=== PATIENT | male | born 1940 | race Caucasian/White ===

== ENCOUNTER → 2020-06-15 12:00 | Outpatient (BNVA) | payer OTHER, SELFPAY | PROVIDERS: PCP Nurse Practitioner Family; Referring Provider Nurse Practitioner Family; Visit Provider Specialist | DX: M17.0 Bilateral primary osteoarthritis of knee (principal); M25.561 Pain in right knee; M25.562 Pain in left knee; G89.29 Other chronic pain | CPT/HCPCS: 73560; 73565 ==

== ENCOUNTER 2020-06-30 06:50 | Outpatient (CLI) | payer OTHER, SELFPAY ==
--- NOTE | 2020-06-30 06:55 | USCV_ITS ---
Schroeder Fred Age: 79 Gender: M : 1940 Exam Date: 06/30/2020 07:16 Ordering Phys: Celena Cruz MD ([email or web address]) Technologist: Arina York Exam Location: [facility] [place] Indication: DYSPNEA ON EXERTION BP: 136 / 75 HR: 87 Rhythm: Sinus Technical Quality: Adequate MEASUREMENTS (Male / Female) Normal Values 2D ECHO LV Diastolic Diameter PLAX 6.7 cm 4.2 - 5.9 / 3.9 - 5.3 cm LV Systolic Diameter PLAX 5.0 cm LV Chamber Size 4.6 cm IVS Diastolic Thickness 1.4 cm 0.6 - 1.0 / 0.6 - 0.9 cm IVS Systolic Thickness 2.2 cm LVPW Diastolic Thickness 2.2 cm 0.6 - 1.0 / 0.6 - 0.9 cm LVPW Systolic Thickness 2.1 cm LVOT Diameter 2.0 cm LV Ejection Fraction 2D Teich 49.0 % LV Ejection Fraction MOD 2C 57.4 % LV Ejection Fraction 2C AL 57.5 % LA Diameter 4.7 cm LA Width 4.8 cm LA Height 6.0 cm RA Width 4.9 cm RA Height 6.5 cm Aorta at Sinotubular Diameter 2.9 cm M-MODE LV Diastolic Diameter MM 7.5 cm 4.2 - 5.9 / 3.9 - 5.3 cm LV Systolic Diameter MM 5.6 cm LV Ejection Fraction MM Teich 49.8 % IVS Diastolic Thickness MM 1.2 cm 0.6 - 1.0 / 0.6 - 0.9 cm IVS Systolic Thickness MM 1.7 cm LVPW Diastolic Thickness MM 1.4 cm 0.6 - 1.0 / 0.6 - 0.9 cm LVPW Systolic Thickness MM 1.8 cm Aortic Annulus Diameter 3.7 cm LA Ao Ratio MM 1.6 MV E Point Septal Separation 1.7 cm DOPPLER AV Peak Velocity 137.0 cm/s LVOT Peak Velocity 123.0 cm/s AV Area Cont Eq vti 2.6 cm squared AV Area Cont Eq pk 2.9 cm squared MV Area PHT 6.9 cm squared Mitral E to A Ratio 2.6 MV E' Velocity 69.0 cm/s Mitral E to MV E' Ratio 5.9 Mitral E to LV E' Lateral Ratio 4.8 Mitral E to LV E' Septal Ratio 7.8 TR Peak Velocity 140.0 cm/s TR Peak Gradient 7.8 mmHg TV Peak E Velocity 85.0 cm/s Right Atrial Pressure 3.0 mmHg Pulmonary Artery Systolic Pressu 10.8 mmHg PV Peak Velocity 76.0 cm/s RV Acceleration Time 0.1 s RV Ejection Time 0.3 s RV AcT/ET 0.3 FINDINGS Left Ventricle Moderately dilated left ventricular cavity. Moderately decreased left ventricle systolic function. Left ankle ejection fraction estimated at 30%. Global left ventricular hypokinesis. Abnormal diastolic function. Right Ventricle Normal right ventricular size and low normal systolic function. RVSP could not be calculated due to incomplete tricuspid regurgitation velocity profile. Right Atrium Normal right atrial size. Left Atrium Moderately increased left atrial size. Mitral Valve Mitral valve not well visualized. Thickened mitral valve. No mitral valve stenosis. No significant mitral valve regurgitation. Aortic Valve Aortic valve not well visualized. Thickened aortic valve. No aortic valve stenosis. No aortic valve regurgitation. Tricuspid Valve Structurally normal tricuspid valve. Trace tricuspid valve regurgitation. Pulmonic Valve Pulmonic valve not well visualized. No pulmonary valve stenosis. Pericardium Trivial to small circumferential pericardial effusion. No evidence of hemodynamic compromise. Aorta Normal size aortic root and proximal ascending aorta. CONCLUSIONS 1. This is a technically difficult study. Ultrasound enhancing agent Optison was used as per protocol. 2. Moderately dilated left ventricular cavity. Moderately decreased left ventricle systolic function. Left ankle ejection fraction estimated at 30%. Global left ventricular hypokinesis. Abnormal diastolic function. 3. Normal right ventricular size and low normal systolic function. 4. Trivial to small circumferential pericardial effusion. 5. No prior similar studies to compare. Celena Cruz MD (Electronically Signed) Final Date: 02 July 2020 18:56 S
[2020-06-30] MEDS: perflutren protein-a microsphr 0.22 mg/mL SDV 3 mL IV (07:41)
== END 2020-06-30 06:51 | disposition home or self-care (01) ==
LOC: RAD 06:52
PROVIDERS: PCP Nurse Practitioner Family; Visit Provider Internal Medicine Cardiovascular Disease
DX: R06.09 Other forms of dyspnea (principal); I31.3 Pericardial effusion (noninflammatory)
CPT/HCPCS: C8929; Q9956

== ENCOUNTER → 2020-07-12 15:35 | Outpatient (BNVA) | payer OTHER, SELFPAY | PROVIDERS: PCP Nurse Practitioner Family; Visit Provider Internal Medicine Cardiovascular Disease | DX: I50.9 Heart failure, unspecified (principal); E66.01 Morbid (severe) obesity due to excess calories; Z68.41 Body mass index [BMI] 40.0-44.9, adult | CPT/HCPCS: 80048; 83735; 83880 ==

== ENCOUNTER → 2020-08-14 15:35 | Outpatient (BNVA) | payer MEDICARE, SELFPAY | PROVIDERS: PCP Nurse Practitioner Family; Visit Provider Internal Medicine Cardiovascular Disease | DX: I50.9 Heart failure, unspecified (principal); I25.10 Atherosclerotic heart disease of native coronary artery without angina pectoris; I25.2 Old myocardial infarction; Z87.891 Personal history of nicotine dependence | CPT/HCPCS: 80048; 83735; 83880 ==

== ENCOUNTER 2020-09-01 07:04 | Outpatient (CLI) | payer MEDICARE, SELFPAY ==
--- NOTE | 2020-09-01 07:29 | ECG_ITS ---
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 Interpretive Statements NAME OF STUDY: LEXISCAN SESTAMIBI STRESS TEST INDICATION: Shortness of Breath, heart failure PROCEDURE: At the baseline, the blood pressure was 171/87 mmHg, oxygen saturation 94% with a heart rate of 67 bpm. The electrocardiogram showed sinus rhythm with PAC's and first-degree AV block. 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 Nonspecific T wave abnormality. The Lexiscan was infused over a period of 20 seconds. A total of 0.4 milligrams of Lexiscan was infused. The stress phase was continued for a total of 5 minutes. Heart rate at the end of the stress phase was 70 bpm, oxygen saturation in 95% with a blood pressure of 120/68 mmHg. The EKG at the peak infusion revealed no significant ST-T wave changes. Sestamibi was injected 20 seconds after the Lexiscan infusion. Blood pressure at the end of the recovery phase was 125/72 mmHg, oxygen saturation 95% with a heart rate of 73 beats per minute. CONCLUSION: 1. No significant EKG changes with the LexiScan infusion. 2. No LexiScan induced chest pain or cardiac arrhythmia. 3. Normal blood pressure and heart rate response. 4. Sestamibi/sestamibi perfusion scan pending; see separate report. Electronically Signed On 09-04-2020 6:34:43 PRINCIPAL ELECTRICAL ENGINEER by Celena Cruz M.D. [id number]
--- NOTE | 2020-09-01 07:30 | NMCV_ITS ---
NM gauri perf SPECT r/s* [id number] Fred Schroeder Age: 79 Gender: M : 1940 Exam Date: 09/01/2020 08:02 Ordering Phys: Celena Cruz MD ([email or web address]) Technologist: JACQUE Hay Exam Location: [facility] Indications: HEART FAILURE STRESS TEST [facility] IMAGE PROTOCOL Rest/Stress 1 Lexiscan Day Radiopharmaceutical Dose (mCi) Administration Site Administered by Rest: Tc-99m 10.9 IV JACQUE Mitchell Sestamibi Stress:Tc-99m 32.9 IV JACQUE Mitchell Sestamibi Rest: 09/01/2020 60 Discovery 630 Stress: 09/01/2020 30 Discovery 630 0.4mg Lexiscan. Supine position only as patient was unable to lay prone. SPECT RESULTS Technical Quality: Good Raw Data Analysis: Soft tissue attenuation Image Corrections: No attenuation or motion correction applied Summed Stress Score: 6 Summed Rest Score: 1 Summed Difference Score: 6 PERFUSION FINDINGS Moderate sized perfusion abnormality of moderate severity of basal to mid inferior wall with mild reversibility of mid and apical inferior mascorro and basal to mid infero-lateral mascorro. FUNCTIONAL RESULTS (calculated via Gated SPECT) Stress Image LV EF (%): 35 Stress EDV (mL):253 TID: 0.91 Stress ESV (mL):164 FUNCTIONAL FINDINGS: The left ventricle is dilated. Transient Ischemia Dilatation of 0.91. The left ventricular ejection fraction is reduced with a value of 35%. There is moderately reduced left ventricular global systolic function. There is moderately decreased wall thickening. Markedly increased end diastolic and end systolic volumes. IMPRESSIONS 1. Moderate sized perfusion abnormality of moderate severity of basal to mid inferior wall with mild reversibility of mid and apical inferior mascorro and basal to mid infero-lateral mascorro. 2. 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 3. There is moderately reduced left ventricular global systolic function, LVEF= 35%. 4. There is moderately decreased wall thickening. 5. No prior similar studies to compare. Celena Cruz MD (Electronically Signed) Final Date: 04 September 2020 06:57 S
[2020-09-01 07:41] VITALS: BMI 34.8
[2020-09-01] MEDS: regadenoson 0.4 Mg/5 ml Syringe IVP (08:49)
[2020-09-01 09:13] VITALS: BP 125/72; PULSE 74
== END 2020-09-01 07:05 | disposition home or self-care (01) ==
PROVIDERS: PCP Nurse Practitioner Family; Visit Provider Internal Medicine Cardiovascular Disease
DX: I50.9 Heart failure, unspecified (principal); E66.01 Morbid (severe) obesity due to excess calories; Z68.41 Body mass index [BMI] 40.0-44.9, adult
CPT/HCPCS: 78452; 93017; A9500; J2785

== ENCOUNTER → 2020-09-18 10:46 | Outpatient (BNVA) | payer MEDICARE, SELFPAY | PROVIDERS: PCP Nurse Practitioner Family; Visit Provider Internal Medicine Cardiovascular Disease | DX: I50.20 Unspecified systolic (congestive) heart failure (principal); I51.7 Cardiomegaly; I25.10 Atherosclerotic heart disease of native coronary artery without angina pectoris | CPT/HCPCS: 80048; 83735; 83880 ==

== ENCOUNTER 2021-04-09 09:58 | Outpatient (CLI) | payer MEDICARE, SELFPAY ==
--- NOTE | 2021-04-09 10:15 | USCV_ITS ---
Fred Schroeder Age: 80 Gender: M : 1940 Exam Date: 04/09/2021 10:27 Ordering Phys: Celena Cruz MD ([email or web address]) Technologist: Kit Enriquez Exam Location: [place] Indication: Assessment of LV function BP: / HR: Rhythm: Sinus Technical Quality: Adequate MEASUREMENTS (Male / Female) Normal Values FINDINGS Left Ventricle Normal left ventricular cavity size. Normal left ventricular systolic function. Left ventricular ejection fraction is estimated at 55 %. No diagnostic regional wall motion normality. Right Ventricle Normal right ventricular size and systolic function. Right Atrium Right atrium not well visualized. Left Atrium Left atrium not well visualized. Mitral Valve Mitral valve not well visualized. Aortic Valve Aortic valve not well visualized. Tricuspid Valve Tricuspid valve not well visualized. Pulmonic Valve Pulmonic valve not well visualized. Pericardium No pericardial effusion. Aorta Aorta not well visualized. CONCLUSIONS 1. This is a limited echocardiogram with ultrasound enhancing agent. Optison was used per protocol. 2. Normal left ventricular cavity size. Normal left ventricular systolic function. Left ventricular ejection fraction is estimated at 55 %. No diagnostic regional wall motion normality. 3. Normal right ventricular size and systolic function. 4. When compared to previous echocardiogram dated 06/30/2020, left ventricle systolic function has improved. Celena Cruz MD (Electronically Signed) Final Date: 09 April 2021 12:18 S
[2021-04-09] MEDS: perflutren protein-a microsphr 0.22 mg/mL SDV 3 mL IV (10:46)
== END 2021-04-09 09:59 | disposition home or self-care (01) ==
LOC: US 09:59
PROVIDERS: PCP Nurse Practitioner Family; Visit Provider Internal Medicine Cardiovascular Disease
DX: I50.9 Heart failure, unspecified (principal)
CPT/HCPCS: 93325; C8924; Q9956

== ENCOUNTER → 2021-08-13 10:54 | Outpatient (BNVA) | payer MEDICARE, SELFPAY | PROVIDERS: PCP Nurse Practitioner Family; Visit Provider Internal Medicine | DX: L40.50 Arthropathic psoriasis, unspecified (principal); L40.9 Psoriasis, unspecified; M17.0 Bilateral primary osteoarthritis of knee; Z87.891 Personal history of nicotine dependence; Z11.59 Encounter for screening for other viral diseases; Z11.1 Encounter for screening for respiratory tuberculosis; N18.9 Chronic kidney disease, unspecified; Z79.899 Other long term (current) drug therapy | CPT/HCPCS: 36415; 99204 ==

== ENCOUNTER 2021-08-13 12:46 | Outpatient (CLI) | payer MEDICARE, SELFPAY ==
--- NOTE | 2021-08-13 12:57 | XR_ITS ---
WS: [email or web address] Exam: XR knee RT 1-2V [id number] Date/Time of Exam: 08/13/2021 12:58 PM Reason For Exam: N18.9 - Chronic kidney disease, unspecified Comparison 06/15/2020. 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 N o significant joint effusion. No fracture. Varus deformity of the knee. XR/XR knee RT 1-2V [id number] IMPRESSION: 1. Tricompartmental degenerative changes most severe involving the medial joint compartment. 2. No fracture.
--- NOTE | 2021-08-13 12:57 | XR_ITS ---
WS: [email or web address] Exam: XR knee LT 1-2V [id number] Date/Time of Exam: 08/13/2021 12:58 PM Reason For Exam: N18.9 - Chronic kidney disease, unspecified No fracture or dislocation. Advanced degenerative change of the medial joint compartment with near koby ne-on-bone articulation. Varus deformity of the knee. No significant joint effusion is seen. Spurring of the posterior patella. XR/XR knee LT -2V [id number] IMPRESSION: 1. Advanced degenerative change of the medial joint compartment of the left kne e. 2. No acute fracture or joint effusion.
== END 2021-08-13 12:47 | disposition home or self-care (01) ==
LOC: RAD 12:50
PROVIDERS: PCP Nurse Practitioner Family; Visit Provider Internal Medicine
DX: I50.9 Heart failure, unspecified (principal); L40.9 Psoriasis, unspecified; M17.11 Unilateral primary osteoarthritis, right knee; M17.12 Unilateral primary osteoarthritis, left knee; N18.9 Chronic kidney disease, unspecified; R94.39 Abnormal result of other cardiovascular function study; Z11.59 Encounter for screening for other viral diseases
CPT/HCPCS: 73560; 86480; 86704; 86803; 87340

== ENCOUNTER → 2022-05-16 15:52 | Outpatient (BNVA) | payer MEDICARE, SELFPAY | PROVIDERS: PCP Nurse Practitioner Family; Visit Provider Internal Medicine Cardiovascular Disease | DX: N18.9 Chronic kidney disease, unspecified (principal); I50.9 Heart failure, unspecified; R06.09 Other forms of dyspnea; R94.39 Abnormal result of other cardiovascular function study; E66.01 Morbid (severe) obesity due to excess calories; Z68.41 Body mass index [BMI] 40.0-44.9, adult; L40.9 Psoriasis, unspecified; M25.561 Pain in right knee; Z87.891 Personal history of nicotine dependence | CPT/HCPCS: 36415; 80053; 80061; 83735; 83880; 84443; 85025; 99214 ==

== ENCOUNTER → 2023-06-26 15:18 | Outpatient (BNVA) | payer MEDICARE, SELFPAY | PROVIDERS: PCP Nurse Practitioner Family; Visit Provider Internal Medicine Cardiovascular Disease | DX: R06.09 Other forms of dyspnea (principal); I50.9 Heart failure, unspecified; R94.39 Abnormal result of other cardiovascular function study; Z87.891 Personal history of nicotine dependence | CPT/HCPCS: 99214 ==